=== PATIENT | male | born 1995 | race American Indian/Alaskan Native ===

== ENCOUNTER 2017-11-30 23:33 | Emergency (ER) | payer OTHER ==
[2017-11-30 23:56] VITALS: BMI 26.3
[2017-12-01 00:02] VITALS: RESP 18; O2SAT 99
--- NOTE | 2017-12-01 00:03 | ED PDOC ---
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 Patient stated during a basketball game, ball hit his finger. He thinks finger is dislocated. Patient denies other somatic complains. Patient is right hand dominant. Patient refused pain medication at this time. (Lois Deal) Past Medical History - Provider Review Nursing Documentation Reviewed: Yes - Psychiatric Hx Substance Use: No <Lois Deal - Last Filed: 12/01/17 02:15> Family/Social History - Physician Review Nursing Documentation Reviewed: Yes Family/Social History: Other (noncontributory) Smoking Status: n Hx Alcohol Use: No Hx Substance Use: No <Lois Deal - Last Filed: 12/01/17 02:15> Allergies/Home Meds <Tristan Flores - Last Filed: 12/01/17 02:06> <Lois Deal - Last Filed: 12/01/17 02:15> Allergies/Adverse Reactions: Allergies No Known Allergies Allergy (Verified 11/30/17 23:56) Review of Systems - Review of Systems Constitutional: Normal. absent: Fatigue, Weight Change, Fevers Eyes: Normal ENT: Normal Respiratory: Normal Cardiovascular: Normal Gastrointestinal: Normal Genitourinary Male: Normal Musculoskeletal: Other (left finger injury and pain) Skin: Normal Neurological: Normal Endocrine: Normal Hemo/Lymphatic: Normal Psychiatric: Normal <Lois Deal - Last Filed: 12/01/17 02:15> Physical Exam Temperature: Afebrile Blood Pressure: Normal Pulse: Regular Respiratory Rate: Normal Appearance: Positive for: Well-Appearing, Non-Toxic, Comfortable Pain Distress: None Mental Status: Positive for: Alert and Oriented X 3 - Systems Exam Head: Present: Atraumatic, Normocephalic Mouth: Present: Moist Mucous Membranes Upper Extremity: Present: NORMAL PULSES, Tenderness, Swelling, Neurovascularly Intact, Capillary Refill < 2s, Deformity (left 5th finger appears mildly deformed). No: Cyanosis, Edema, Erythema Lower Extremity: Present: Normal Inspection, NORMAL PULSES, Normal ROM, Neurovascularly Intact, Capillary Refill < 2 s. No: Edema Neurological: Present: GCS=15, CN II-XII Intact, Speech Normal, Motor Func Grossly Intact, Normal Sensory Function, Normal Cerebellar Funct, Gait Normal Skin: Present: Warm, Dry, Normal Color. No: Rashes Psychiatric: Present: Alert, Oriented x 3, Normal Insight, Normal Concentration <Lois Deal P - Last Filed: 12/01/17 02:15> Vital Signs Temp Pulse Resp BP Pulse Ox 11/30/17 23:59 98.2 F 84 18 134/80 99 Medical Decision Making <Tristan Flores - Last Filed: 12/01/17 02:06> Re-evaluation Time: 02:14 Reassessment Condition: Re-examined, Improved <Swati Dealim P - Last Filed: 12/01/17 02:15> ED Course and Treatment: 12/01/17 02:09 Re-evaluation. Patient feels better. Discussed results and plan with patient who expresses understanding. All questions answered and there is agreement with the plan to discharge home with instructions. Patient stable for discharge. Return if symptoms persist or worsen. (Deal,Nahim P) - RAD Interpretation Narrative RAD Interpretations (Text): 12/01/17 01:14 Finger x-rays: (+) dislocation left 5th PIPJ dislocation 12/01/17 02:14 Finger x-rays: Pos reduction films. Normal alignment. (Deal,Nahim P) Radiology Orders: 11/30/17 23:59 HAND LEFT 5TH DIGIT (FINGER) [RAD] Stat 12/01/17 01:27 HAND LEFT 5TH DIGIT (FINGER) [RAD] Stat - Procedure PROCEDURE NOTE (Text): 12/01/17 02:09 PROCEDURE: REDUCTION Performed by the emergency provider Time: 01:45 Consent: Informed consent, after discussion of the risks, benefits, and alternatives to the procedure, was obtained. Timeout: A timeout to verify the correct patient, procedure, and site was performed immediately prior to the procedure.~ Indication: left 5th finger dislocation Location: left 5th PIPJ dislocation Sedation: digital block. Pre-procedure neurovascular status: Distal neurovascular status intact. Technique: traction-countertraction Post-procedure neurovascular status: Distal neurovascular status remains intact. Confirmation: Post-reduction films confirm reduction. See post-procedure X-Ray interpretation. Post-procedure: Patient tolerated the procedure well with no immediate complications. The reduction site was immobilized with a finger splint. (Lois Deal) - PA / TRADES HELPER / Resident Statement OMAR has reviewed & agrees with the documentation as recorded. / has examined the patient and agrees with the treatment plan. <Tristan Flores - Last Filed: 12/01/17 02:06> Disposition/Present on Arrival <Tristan Flores - Last Filed: 12/01/17 02:06> - Present on Arrival Any Indicators Present on Arrival: No History of DVT/PE: No History of Uncontrolled Diabetes: No Urinary Catheter: No History of Decub. Ulcer: No History Surgical Site Infection Following: None - Disposition Have Diagnosis and Disposition been Completed?: Yes Disposition Time: 02:12 Patient Plan: Discharge <Lois Deal - Last Filed: 12/01/17 02:15> - Disposition Diagnosis: Finger dislocation Disposition: HOME/ ROUTINE Patient Problems: Current Active Problems Problem Status Onset Finger dislocation Acute Condition: GOOD Discharge Instructions (ExitCare): Finger Dislocation (DC) Additional Instructions: Call hand doctor office for follow up visit this coming week. Do not remove finger splint. Do not do sport or gym till evaluated by doctor. Referrals: Jordin Smith MD [Staff Provider] - Follow up with primary Forms: [employer] (Kinyarwanda)
[2017-12-01] MEDS ORDERED: Lidocaine 1% Inj (20ml) ONE (01:09)
[2017-12-01 02:24] VITALS: BP 128/82; PULSE 82; TEMP 97.9
--- NOTE | 2017-12-01 10:06 | RAD ---
PROCEDURE: Left Hand Radiographs. HISTORY: pain s/p trauma COMPARISON: None. FINDINGS: BONES: Normal. No fracture. JOINTS: There is dislocation of the 5th PIP joint. SOFT TISSUES: Normal. OTHER FINDINGS: None. IMPRESSION: There is dislocation of the 5th PIP joint.
--- NOTE | 2017-12-01 10:07 | RAD ---
PROCEDURE: Left Hand Radiographs. HISTORY: post reduction COMPARISON: Earlier same day FINDINGS: BONES: Normal. No fracture. JOINTS: Normal. No osteoarthritic changes. SOFT TISSUES: Normal. OTHER FINDINGS: None. IMPRESSION: Successful reduction of dislocation of 5th PIP joint
== END 2017-12-01 02:22 | disposition home or self-care (01) ==
LOC: ED 23:33
DX: S63.287A Dislocation of proximal interphalangeal joint of left little finger, initial encounter (principal); W21.05XA Struck by basketball, initial encounter; Y93.67 Activity, basketball; Y92.39 Other specified sports and athletic area as the place of occurrence of the external cause